=== PATIENT | female | born 1960 | race Hispanic/Latino ===

== ENCOUNTER 2018-01-16 15:17 | Emergency (ER) | payer SELFPAY ==
--- NOTE | 2018-01-16 19:05 | Emergency Department Report ---
ED CPR HPI - General Chief Complaint: Cardiac Arrest/CPR Stated Complaint: CARDIAC Time Seen by Provider: 01/16/18 15:52 Source: EMS Mode of arrival: Stretcher Limitations: No Limitations - History of Present Illness Initial Comments: Ms. Rivas is 57 yo female who presents in cardiac arrest. She has hx of paranoid schizophrenia and COPD. Her caregiver noticed that she did not appear well. She did mention chest pain. However, she repeatedly declined transport to hospital. Her caregiver Mari asked brother to take her to obtain medical care. Once caregiver left, she was notified by another resident that Ms. Rivas was unresponsive. EMS arrived. Asystole noted. Intubation was successful but tube was lost in route. EMS provided 20+ minutes of resuscitation. Rhythm asystole during entire resuscitation attempt. MD Complaint: found unresponsive Place: home Bystander CPR Performed: No Downtime Before ACLS Arrival (mins): 40 Initial Findings in the Field: unresponsive, no respirations, no pulse, other rhythm (asystole) ROSC in the Field: No Associated Injuries: No Associated Symptoms: chest pain ED Review of Systems ROS: Stated complaint: CARDIAC Other details as noted in HPI Comment: Unobtainable due to pts medical conditions ED Past Medical Hx - Past Medical History Previous Medical History?: Yes Hx Psychiatric Treatment: Yes (paranoid schizophrenia) Hx COPD: Yes - Social History Smoking Status: Current Every Day Smoker ED Physical Exam - General Limitations: Physical Limitation General appearance: other (trejo lifeless cool to touch) - Head Head exam: Present: atraumatic, normocephalic - Eye Eye exam: Present: other (fixed dilated nonreactive pupils) - ENT ENT exam: Present: mucous membranes dry, other (cosme colored tongue) - Neck Neck exam: Present: normal inspection - Respiratory Respiratory exam: Present: other (no spontaneous respirations) - Cardiovascular Cardiovascular Exam: Present: other (no auscultated heart sounds) - GI/Abdominal GI/Abdominal exam: Present: distended - Extremities Exam Extremities exam: Present: other (no deformity no signs of trauma) - Neurological Exam Neurological exam: Present: other (lifeless no movement) - Psychiatric Psychiatric exam: Present: other (lifeless) - Skin Skin exam: Present: other (cool trejo) ED Medical Decision Making - Medical Decision Making Ms. Rivas had a total downtime over 40 minutes according to EMS. With persistent asystole rhythm in spite ACLS performed by EMS, further resuscitation deemed futile. Asysole confirmed in two leads. Time of 1508 Critical care attestation.: If time is entered above; I have spent that time in minutes in the direct care of this critically ill patient, excluding procedure time. ED Disposition Clinical Impression: Cardiac arrest Disposition: DC-20 Is pt being admited?: No Does the pt Need Aspirin: No Condition: Stable Time of Disposition: 15:08
== END 2018-01-16 17:21 ==
LOC: ED 15:17
DX: I46.9 Cardiac arrest, cause unspecified (principal); F20.0 Paranoid schizophrenia; J44.9 Chronic obstructive pulmonary disease, unspecified; F17.200 Nicotine dependence, unspecified, uncomplicated
CPT/HCPCS: 99285